=== PATIENT | female | born 1980 | race Caucasian/White ===

== ENCOUNTER 2022-02-02 14:43 | Emergency (ER) | payer MEDICAID ==
[~2022-02-02] VITALS: Ht 167.6 cm; Wt 88.5 kg
--- NOTE | 2022-02-02 15:08 | NUR ---
Dr Howard at the bedside for MSE.
[2022-02-02] MEDS ORDERED: PRED50TA PO (15:19)
[2022-02-02] MEDS ORDERED: ACET-73 PO (15:19)
[2022-02-02 15:50] LABS: HEMATOCRIT 39.6 % (31.2-41.9); MEAN CORPUSCULAR HEMOGLOBIN 31.1 uug (24.7-32.8); MEAN CORPUSCULAR VOLUME 90.8 fL (75.5-95.3); PLATELET COUNT (AUTO) 261 K/uL (179-408)
[2022-02-02 15:51] LABS: CARBON DIOXIDE 25 mmol/L (21-32); CHLORIDE 105 mmol/L (98-107); CREATININE 0.6 mg/dL (0.6-1.3); GLUCOSE 118 mg/dL (74-106); POTASSIUM 3.6 mmol/L (3.5-5.1); UREA NITROGEN, BLOOD 11 mg/dL (7-18)
[2022-02-02 16:07] LABS: ALANINE AMINOTRANSFERASE 77 U/L (14-59); ALKALINE PHOSPHATASE 76 U/L (50-136); ASPARTATE AMINOTRANSFERASE 22 U/L (15-37); BILIRUBIN,DIRECT 0.1 mg/dL (0.0-0.2); BILIRUBIN,TOTAL 0.2 mg/dL (0.2-1.0)
[2022-02-02] MEDS ORDERED: ACETAMINOPHEN ES 500 MG TABLET PO ONE (18:15)
[2022-02-02] MEDS ORDERED: predniSONE 50 MG TABLET PO ONE (18:15)
[2022-02-02] MEDS ORDERED: predniSONE 50 MG TABLET ONE (18:17)
[2022-02-02] MEDS ORDERED: ACETAMINOPHEN ES 500 MG TABLET ONE (18:17)
--- NOTE | 2022-02-02 18:29 | NUR ---
Patient discharged to home in stable condition. Written and verbal after care instructions given. Patient verbalizes understanding of instructions. Stressed follow up or return to ER for worsening s/s.
[2022-02-02 18:30] VITALS: BP 122/87
== END 2022-02-02 18:31 | disposition home or self-care (01) ==
LOC: ER 14:43
DX: R07.9 Chest pain, unspecified (principal); M54.12 Radiculopathy, cervical region
CPT/HCPCS: 36415; 71045; 80048; 80076; 83880; 84484 ×2; 85025; 85379; 93005 ×2; 99285; J7512; A4663; A9150

== ENCOUNTER 2022-10-25 11:49 | Emergency (ER) | payer MEDICAID ==
[~2022-10-25] VITALS: Ht 162.6 cm; Wt 90.7 kg
[~2022-10-25 11:49] MED LIST: ACET-73 PO; PRED50TA PO
[2022-10-25] MEDS ORDERED: predniSONE 20 MG TABLET PO ONE (12:15)
[2022-10-25] MEDS ORDERED: predniSONE 20 MG TABLET ONE ×2 (12:22→12:38)
[2022-10-25] MEDS ORDERED: VALACYCLOVIR HCL 500 MG TABLET PO ONE (12:30)
[2022-10-25] MEDS ORDERED: VALACYCLOVIR HCL 500 MG TABLET ONE (12:33)
[2022-10-25 12:49] LABS: HEMATOCRIT 40.2 % (31.2-41.9); MEAN CORPUSCULAR HEMOGLOBIN 31.3 uug (24.7-32.8); MEAN CORPUSCULAR VOLUME 92.1 fL (75.5-95.3); PLATELET COUNT (AUTO) 255 K/uL (179-408)
[2022-10-25 13:11] LABS: CARBON DIOXIDE 29 mmol/L (21-32); CHLORIDE 105 mmol/L (98-107); CREATININE 0.5 mg/dL (0.6-1.3); GLUCOSE 113 mg/dL (74-106); POTASSIUM 3.9 mmol/L (3.5-5.1); UREA NITROGEN, BLOOD 12 mg/dL (7-18)
[2022-10-25] MEDS ORDERED: PRED20TA PO (13:45)
[2022-10-25] MEDS ORDERED: VALA10002 PO (13:45)
--- NOTE | 2022-10-25 14:01 | NUR ---
Pt arrived w/ c/o neuro problems, facial drooping. Seen by Dr. Hernandez for MSE.
[2022-10-25 14:16] VITALS: BP 135/78
== END 2022-10-25 14:17 | disposition home or self-care (01) ==
LOC: ER 11:49
DX: G51.0 Bell's palsy (principal); I10 Essential (primary) hypertension
CPT/HCPCS: 99284; 70450; 80048; 85025; 36415; J7512; A4663